=== PATIENT | female | born 2000 | race Caucasian/White ===

== ENCOUNTER 2023-02-25 12:12 | Emergency (ER) | payer OTHER ==
[~2023-02-25] VITALS: Ht 154.9 cm; Wt 74.8 kg
[2023-02-25 12:12] VITALS: BP 129/77; TEMP 98.3
[2023-02-25 13:41] VITALS: O2SAT 97
== END 2023-02-25 13:41 | disposition home or self-care (01) ==
LOC: ER 12:32
DX: H11.33 Conjunctival hemorrhage, bilateral (principal)